=== PATIENT | male | born 1975 | race Caucasian/White ===

== ENCOUNTER 2017-04-08 15:42 | Emergency (ER) | payer OTHER ==
[~2017-04-08] VITALS: Ht 177.8 cm; Wt 120.2 kg
--- NOTE | 2017-04-08 16:31 | ED NECK/BACK PAIN COMPLAINT ---
History of Present Illness General Chief Complaint: Low Back Pain/Injury Stated Complaint: LBP Source: patient Exam Limitations: no limitations Vital Signs & Intake/Output Vital Signs & Intake/Output Vital Signs Date Time Temp Pulse Resp B/P B/P Pulse O2 O2 Flow FiO2 Mean Ox Delivery Rate 04/08 1847 98.8 61 18 131/78 98 Room Air 04/08 1547 97.8 77 16 128/84 98 Room Air Allergies Coded Allergies: Penicillins (Intermediate, RASH, HIVES 04/08/17) Reconcile Medications Cyclobenzaprine HCl 10 MG TABLET 1 TAB PO QPM PRN SPASM DO NOT DRIVE WITH THIS MEDICATION Cyclobenzaprine HCl 10 MG TABLET 1 TAB PO QPM muscle strain Triage Note: 41M C/O RIGHT SIDED FLANK AREA PAIN WITH MILD CVA TENDERNESS SINCE THIS AM. PLAYED GOLF AND FEELS PAIN IS EVEN WORSE. DENIES ALLEVIATING FACTORS. DENIES SYMPTOMS. DENIES N/V/D. MEDICATED WITH TYLENOL IN TRIAGE. GIVEN URINE CUP FOR SPECIMEN Triage Nurses Notes Reviewed? yes Onset: Abrupt Duration: hour(s): Timing: single episode today Quality/Severity: moderate, sharpness Location: paraspinous muscles, flank Radiation: none Context: golfing Loss of Consciousness: no loss of consciousness HPI: 41-year-old male presents emergency department complaining of right sided low back/flank pain beginning this morning. History of chronic back pain related to compression fractures sustained as a teenager, he is also experienced muscle strain, his current pain feels different to his chronic back pain or muscular strain. He states that he noticed pain earlier this morning during golf. Pain is described as sharp, stabbing, intermittent, without radiation. He is worried about a kidney stone, no history of stones or kidney infection. The patient denies fevers, chills, abdominal pain, nausea, vomiting, dysuria, hematuria, fall, trauma to back. (SONIA FERNANDEZ,PAIGE GALINDO) Past History Travel History Traveled to [place] past 21 day No Medical History Any Pertinent Medical History? see below for history Neurological: NONE EENT: NONE Cardiovascular: NONE Respiratory: NONE Gastrointestinal: NONE Hepatic: NONE Renal: NONE Musculoskeletal: vertebral compression fx Psychiatric: NONE Endocrine: NONE Blood Disorders: NONE Cancer(s): NONE Surgical History Surgical History: non-contributory Psychosocial History What is your primary language Danish Tobacco Use: Never used ETOH Use: occasional use Illicit Drug Use: denies illicit drug use Family History Hx Contributory? No (PAIGE SCOTT PA-C) Review of Systems Review of Systems Constitutional: Reports: no symptoms. Eyes: Reports: no symptoms. Ears, Nose, Throat, Mouth: Reports: no symptoms. Respiratory: Reports: no symptoms. Cardiovascular: Reports: no symptoms. Gastrointestinal/Abdominal: Reports: no symptoms. Musculoskeletal: Reports: see HPI. Skin: Reports: no symptoms. Neurological/Psychological: Reports: no symptoms. All Other Systems: Reviewed and Negative (PAIGE SCOTT PA-C) Physical Exam Physical Exam General Appearance: well developed/nourished, no apparent distress, alert, awake Head: atraumatic, normal appearance Eyes: Bilateral: normal appearance. Ears, Nose, Throat, Mouth: hearing grossly normal Neck: normal inspection, supple, full range of motion, no midline tenderness Respiratory: no respiratory distress Gastrointestinal: normal bowel sounds, soft, non-tender Back: normal inspection, normal range of motion, no vertebral tenderness, right midback tenderness, no CVA tenderness, no swelling or evidence of injury Extremities: non-tender, normal range of motion Neurologic/Psych: no motor/sensory deficits, awake, alert, oriented x 3 Skin: intact, normal color, warm/dry (PAIGE SCOTT PA-C) Progress Differential Diagnosis: myofascial strain, pyelo/UTI, sciatica, spinal cord inj, T/L spine injury, ureterolithiasis Plan of Care: Orders Procedure Date/time Status COMPREHENSIVE METABOLIC PANEL 04/08 1618 Complete CBC WITHOUT DIFFERENTIAL 04/08 1618 Complete URINALYSIS 04/08 1550 Complete Laboratory Tests 04/08/17 1623: Anion Gap 11, Estimated GFR > 60, BUN/Creatinine Ratio 17.5, Glucose 108 H, Calcium 10.0, Total Bilirubin 0.7, AST 50, ALT 104 H, Alkaline Phosphatase 61, Total Protein 7.5, Albumin 4.6, Globulin 2.9, Albumin/Globulin Ratio 1.6, CBC w Diff NO MAN DIFF REQ, RBC 5.33, MCV 84.3, MCH 28.3, RDW 13.1, MPV 7.6, Gran % 77.4 H, Lymphocytes % 16.5 L, Monocytes % 4.9, Eosinophils % 0.8, Basophils % 0.4, Absolute Granulocytes 5.8, Absolute Lymphocytes 1.2, Absolute Monocytes 0.4 , Absolute Eosinophils 0.1, Absolute Basophils 0, PUBS MCHC 33.5 04/08/17 1553: Urine Color YEL, Urine Clarity CLEAR, Urine pH 6.0, Ur Specific [place] >= 1.030 , Urine Protein NEG, Urine Ketones TRACE H, Urine Nitrite NEG, Urine Bilirubin NEG, Urine Urobilinogen 0.2, Ur Leukocyte Esterase NEG, Ur Microscopic EXAM NOT REQUIRED, Urine Hemoglobin NEG, Urine Glucose NEG The patient was discussed with Dr. Escobar. The patient was informed that location of his pain is likely muscular however he wishes to be worked up for kidney pathology. The patient's lab work does not indicate signs of kidney infection or kidney stone. The patient was given option for ultrasound here which may require additional waiting or outpatient ultrasound. The patient elects to receive ultrasound here in the emergency room today. Patient reports improvement in pain following IM toradol. Ultrasound shows no abnormality in kidneys. Patient was informed that this is likely muscular. He was given a prescription for muscle relaxer and orthopedic follow-up. The patient will follow up with orthopedic doctor and call to make an appointment with continued back pain. The patient is well-appearing, vital signs are stable, he is in no acute distress. The patient is in agreement with the plan of care. (SONIA FERNANDEZ,PAIGE GALINDO) Diagnostic Imaging: Viewed by Me: Ultrasound. Discussed w/RAD: Ultrasound. Radiology Impression: PATIENT: GARLAND ENRIQUEZ JR PRESENT AGE: 41 PATIENT ACCOUNT NO: [id number] : 73 LOCATION: [facility] ORDERING PHYSICIAN: PAIGE SCOTT PA-C SERVICE DATE: 04/08/17 EXAM TYPE: US - US-RENAL/KIDNEY EXAMINATION: US RETROPERITONEAL COMPLETE (RENAL) CLINICAL INFORMATION: Right-sided back pain. Rule out hydronephrosis or kidney stone.. COMPARISON: None TECHNIQUE: Real-time imaging of the kidneys and bladder. FINDINGS: RIGHT KIDNEY: 11.4 x 6.2 x 6 cm (SAG x AP x TRV). The kidney is normal in size, contour, and echogenicity. Renal cortical thickness is normal. No calculi or focal parenchymal lesions. No hydronephrosis. LEFT KIDNEY: 11.6 x 6.5 x 5 cm (SAG x AP x TRV). The kidney is normal in size, contour, and echogenicity. Renal cortical thickness is normal. No calculi or focal parenchymal lesions. No hydronephrosis. BLADDER: Partially distended. Bilateral ureteral jets are not demonstrated. Prevoid bladder volume is 80 mL. Postvoid bladder volume is 7 mL. IMPRESSION: Unremarkable renal ultrasound. No hydronephrosis or nephrolithiasis.. DICTATED BY: JOSE MANUEL RUVALCABA MD DATE/TIME DICTATED:04/08/171900 PEDIATRIC CNS:RIK DATE/TIME TRANSCRIBED:1900 CONFIDENTIAL, DO NOT COPY WITHOUT APPROPRIATE AUTHORIZATION. < Electronically signed in Other Vendor System> SIGNED BY: JOSE MANUEL RUVALCABA MD 04/08/171906 (SONIA FERNANDEZ,PAIGE GALINDO) Departure Departure Disposition: HOME OR SELF CARE Condition: Stable Clinical Impression Primary Impression: Muscle strain Referrals: SHILPI SONG,MECHE Nuñez (PCP/Family) VERÓNICA SONG,ZULEIKA Additional Instructions: Take flexoril at night time as needed for muscular pain, this may cause drowsiness, do not drive while taking this medication. Take Motrin 800 mg 3 times a day as needed for your muscular pain. Follow-up with orthopedic doctor regarding her pain if it is persistent. As discussed monitor for signs of abdominal pain, high fevers, painful urination, increasing pain, vomiting. Return with any worsening symptoms or concerns. Please note that there might be incidental findings in your evaluation that are unrelated to the current emergency department visit. Please notify your primary care doctor about this emergency department visit in order to obtain and review all of the testing performed so that these incidental findings can be monitored as needed. If you're unable to follow up as outlined in the discharge instructions please return to the emergency department. Thank you for choosing the [facility] Department for your care. It was a pleasure to serve you today. Departure Forms: Customer Survey General Discharge Information Prescriptions: Current Visit Scripts Cyclobenzaprine HCl 1 TAB PO QPM PRN SPASM #[address] WITH THIS MEDICATION Cyclobenzaprine HCl 1 TAB PO QPM #10 TAB (SONIA FERNANDEZ,PAIGE GALINDO) PA/CAR OILER Co-Sign Statement Statement: ED Attending supervision documentation- [] I saw and evaluated the patient. I have also reviewed all the pertinent lab results and diagnostic results. I agree with the findings and the plan of care as documented in the PA's/CAR OILER's documentation. [X] I have reviewed the ED Record and agree with the PA's/CAR OILER's documentation. [] Additions or exceptions (if any) to the PAs/CAR OILER's note and plan are summarized below: [] (SUNIL SONG,JIM)
[2017-04-08 16:34] LABS: ABSOLUTE BASOPHIL COUNT 0 /CUMM (0.0-0.2); ABSOLUTE EOSINOPHIL COUNT 0.1 /CUMM (0.0-0.7); ABSOLUTE GRANULOCYTE CT 5.8 /CUMM (1.4-6.5); ABSOLUTE LYMPH COUNT 1.2 /CUMM (1.2-3.4); ABSOLUTE MONOCYTE COUNT 0.4 /CUMM (0.10-0.60); BASOPHIL % 0.4 % (0.0-2.0); EOSINOPHIL % 0.8 % (0-5); GRANULOCYTE % 77.4 % (42.2-75.2); HEMATOCRIT 44.9 % (42-52); MEAN CORPUSCULAR HGB 28.3 PG (27.0-31.0); MEAN CORPUSCULAR HGB CONC 33.5 G/DL (33.0-37.0); MEAN CORPUSCULAR VOLUME 84.3 FL (80.0-94.0); MEAN PLATELET VOLUME 7.6 FL (7.4-10.4); PLATELET COUNT 300 /CUMM (130-400); RBC DISTRIBUTION WIDTH 13.1 % (11.5-14.5); RED BLOOD CELL CT 5.33 /CUMM (4.70-6.10); WHITE BLOOD CELL COUNT 7.5 /CUMM (4.8-10.8)
[2017-04-08 18:47] VITALS: BP 131/78
--- NOTE | 2017-04-08 19:07 | ULTRASOUND REPORT ---
EXAMINATION: US RETROPERITONEAL COMPLETE (RENAL) CLINICAL INFORMATION: Right-sided back pain. Rule out hydronephrosis or kidney stone.. COMPARISON: None TECHNIQUE: Real-time imaging of the kidneys and bladder. FINDINGS: RIGHT KIDNEY: 11.4 x 6.2 x 6 cm (SAG x AP x TRV). The kidney is normal in size, contour, and echogenicity. Renal cortical thickness is normal. No calculi or focal parenchymal lesions. No hydronephrosis. LEFT KIDNEY: 11.6 x 6.5 x 5 cm (SAG x AP x TRV). The kidney is normal in size, contour, and echogenicity. Renal cortical thickness is normal. No calculi or focal parenchymal lesions. No hydronephrosis. BLADDER: Partially distended. Bilateral ureteral jets are not demonstrated. Prevoid bladder volume is 80 mL. Postvoid bladder volume is 7 mL. IMPRESSION: Unremarkable renal ultrasound. No hydronephrosis or nephrolithiasis..
[2017-04-08] MEDS ORDERED: CYCLOBENZAPRINE10 M1 PO ×2 (19:22→23:46)
== END 2017-04-08 19:31 ==
LOC: ERH 15:42
PROVIDERS: Physician Assistant
DX: S39.012A Strain of muscle, fascia and tendon of lower back, initial encounter (principal); R10.9 Unspecified abdominal pain; X50.9XXA Other and unspecified overexertion or strenuous movements or postures, initial encounter; Y93.53 Activity, golf; Y92.39 Other specified sports and athletic area as the place of occurrence of the external cause
CPT/HCPCS: 76775; 81003; 96372